=== PATIENT | female | born 1985 | race Caucasian/White ===

== ENCOUNTER → 2023-01-23 | Outpatient (CLI) | payer OTHER, SELFPAY ==
--- NOTE | 2023-01-23 08:00 | RAD_ITS ---
CLINICAL HISTORY: Female, 38 years old. Chronic left shoulder pain. PROCEDURE: ARTHROGRAM - LEFT SHOULDER ASPIRATION. CONSENT: The procedure as well as the benefits and possible complications including infection and bleeding were explained to the patient. Informed consent was obtained. FLUOROSCOPY TIME (if supplied): (50 seconds) minutes/seconds . 8.42 mGy Injection Information: 5 cc of ISOVUE-300 Number of images obtained: 1 TECHNIQUE: (All elements of maximal sterile barrier technique followed, including US elements as applicable) The patient was in the supine position. The overlying skin was prepped and draped in usual sterile fashion. Following local anesthetic application, a 22-gauge spinal needle was placed into the shoulder joint. 5 cc of ISOVUE-300 was injected for confirmation. Following this, aspiration was performed. Approximately 2 cc of blood-tinged fluid was aspirated. The patient tolerated the procedure well. Incidental note is made of a calcific tendinitis. RAD/Inj/Asp Ihsan Jt Should/Hip/Knee IMPRESSION: Successful left shoulder arthrogram and aspiration. Calcific tendinitis. Electronically Signed: Onur Atkins MD at 9:24 EST ,
[2023-01-23] MEDS: Lidocaine 2% (5ml sdv) 5 ML VIAL.MPF INFILT (08:25)
== END | disposition home or self-care (01) ==
PROVIDERS: PCP Nurse Practitioner Family; Referring Provider Specialist; Visit Provider Specialist
DX: M25.512 Pain in left shoulder (principal)
CPT/HCPCS: 20610; 77002; 87070; 87075; 87205

== ENCOUNTER 2023-03-26 13:28 | Observation (INO) | payer OTHER, SELFPAY ==
[2023-03-26] VITALS (7 sets, daily range): BP systolic 111–144; BP diastolic 75–97; PULSE 69–81; RESP 16–18; TEMP 36.6–37.3; O2SAT 99–100; BMI 23.0
[2023-03-26] MEDS: 0.9% Normal Saline 1,000 ML 50 ML IV (13:58)
[2023-03-26] MEDS: Ondansetron 4 MG/2 ML Vial IV (13:58)
[2023-03-26] MEDS: Morphine 2 MG/ML Syringe IV (13:58)
[2023-03-26] MEDS: 0.9% Saline Lock 10 ML Syringe IV (13:59)
--- NOTE | 2023-03-26 16:38 | HP.PCM_ITS ---
HPI - General General Date of Admission: 03/26/23 Date of Service: 03/26/23 Chief Complaint: Distal right ureteral calculi HPI Narrative ALEKSANDRA MARTINEZ, is a 38 F who presents severe pain on the right side she has a stone in the distal right ureter and have not been able to pass it she was in severe pain intractable pain and outside emergency room they called me accepted the patient as a transfer patient was seen in the preoperative area and recommended that we place a stent to alleviate the pain and an obstruction with how much pain she is having very concerned she may have an infection. She was wondering if we can get the stone out today I told her given the situation I recommend we just place a stent and then bring her back for another time to laser the stone out at a separate setting once we know there is no more infection. FORMERLY [facility], [facility]–1983 Medical History Depression Kidney stones Home Medications ciprofloxacin HCl 500 mg tablet (Cipro) 500 mg PO BID #10 tabs 03/26/23 [Rx Last Taken Unknown] oxycodone-acetaminophen 5 mg-325 mg tablet (Endocet) 1 tab PO Q6H PRN pain 7 da ys #20 tabs 03/26/23 [Rx Last Taken Unknown] Allergy/AdvReac Type Severity Reaction Status Date / Time No Known Allergies Allergy Verified 03/26/23 13:58 Surgical History no surgical history Social History Smoking Status: Never smoker Vital Signs Vital Signs Vital Signs: 03/26/23 13:11 03/26/23 13:53 Temperature 97.8 F Temperature Source Oral Pulse Rate 77 Respiratory Rate 18 Respiratory Effort Normal Non-Labored Respiratory Depth Normal Respiratory Pattern Normal Blood Pressure 144/97 H Blood Pressure Mean 112 Blood Pressure Source Monitor Blood Pressure Position Semi-Fowlers Blood Pressure Location Left Forearm Pulse Ox 99 Oxygen Delivery Method Room Air Room Air Weight Weight: 62.823 kg Body Mass Index (BMI) 23.0 Physical Exam Const alert and oriented x3 General Appearance: cooperative HEENT normocephalic, head/scalp atraumatic, EAC's normal and TM's normal bilaterally Eyes PERRL and EOMs intact bilaterally Pupil: sluggish Neck no lymphadenopathy, supple and no JVD General: trachea midline Lymph Lymphatic: no lymphadenopathy noted, lymphedema and lymphadenopathy Resp normal respiratory effort, normal air movement and clear to auscultation bilaterally Cardio regular rate, regular rhythm and peripheral pulses 2+ throughout GI soft to palpation, non-tender and non-distended Extremity normal capillary refill and no clubbing, cyanosis or edema General Extremity: no tenderness to palpation of joints or extremities Skin no rashes or lesions noted General Skin Exam: turgor normal Lesions: no lesions Rashes: no rashes Neuro CN's II-XII intact bilaterally Speech: speech normal Motor Exam: strength 5/5 throughout; Negative for general weakness Psych thought process normal, cooperative and affect normal Appearance: appropriate Results Medical Records Data Attestation: I reviewed the patient's medical records Assessment & Plan Assessment/Plan (1) Kidney stones: PLAN: Plan for cystoscopy and right stent placement.
--- NOTE | 2023-03-26 16:39 | DCINST_ITS ---
Discharge Instructions Diet Discharge Diet: No restrictions, Light diet - advance as tolerated and Soft diet Activity Discharge Activity: Return to Normal Activity Follow Up Care Please Follow Up With: Alexsander Mabry MD When: call office [phone] for instructions Test Results: Test results from this visit will be discussed in further detail at your follow- up appointment, if applicable. Discharge Plan Admission Admit Date/Time: 03/26/23 13:28 Primary Reason for Your Visit: right kidney stone Attending Provider: Alexsander Mabry Primary Care Provider: Brandan Chow Instructions Patient Instructions: Having a Ureteral Stent Discharge Orders/Prescriptions Prescriptions: New oxycodone-acetaminophen [Endocet] 5-325 mg tablet 1 tab PO Q6H PRN (Reason: pain) 7 Days Qty: 20 0RF ciprofloxacin HCl [Cipro] 500 mg tablet 500 mg PO BID Qty: 10 0RF Referrals / Follow Up: Alexsander Mabry MD [Med Staff - Active Staff] - Brandan Chow DO [Primary Care Provider] - Disposition Discharge Orders: Discharge Patient (Routine); Ordered 03/26/23 Ordered By: Dr. Alexsander Mabry
[2023-03-26] MEDS: Cefazolin 2 GM in 0.9% Normal Saline 100 ML IV (16:40)
--- NOTE | 2023-03-26 16:40 | PCM.OPRPT ---
Report of Operation Date of Procedure: 03/26/23 Pre-Operative Diagnosis: Obstructing right distal ureteral calculi Post-Operative Diagnosis: Same Surgery/Procedure Performed:: Cystoscopy right retrograde pyelogram interpretation fluoroscopic images and right stent placement Description of Surgical Findings:: Patient was taken back to the operating room at a smooth induction of general anesthesia she was placed in dorsolithotomy position. The urethra and vaginal area were prepped and draped in usual sterile fashion went into the bladder with a 21 Occitan rigid cystourethroscope she had a minor cystocele inside the bladder identified the trigone the left and right UO orifice the distal right ureter was fairly inflamed and swollen. I then cannulated the right ureteral orifice with a 0.038 Glidewire and a Pollick catheter and immediately got E flux of purulent urine coming from the right side. So at this point decided just to place a stent to be safe so put Pollick catheter performed a retrograde pyelogram there was a ureter that was somewhat twisted and hydronephrotic and hydronephrosis in the right side I then coiled the wire up in the right kidney and over the wire I placed a 6 Occitan by 26 cm stent once in good position pulled the wire and the stent coiled in the kidney bladder good position I then drained the bladder patient anesthetic was reversed and she is taken back to PACU in good condition be discharged home today and follow-up instructions will be given to call my office for instructions. Surgeon: Alexsander Mabry Type of Anesthesia: MAC Drains: stent right. Estimated Blood Loss (mL): 0 Admit VTE Documentation VTE Present on Admission: No VTE Mechan Device Prophylaxis: SCD's VTE Pharm Prophylaxis ordered?: No
== END 2023-03-26 19:43 | disposition home or self-care (01) ==
PROVIDERS: Admitting Provider Urology; PCP Family Medicine; Referring Provider Urology; Visit Provider Urology
PROC: (CPT 52332; principal; 2023-03-26 16:50)
DX: N13.2 Hydronephrosis with renal and ureteral calculous obstruction (principal)
CPT/HCPCS: 52332; 00910; 76000; 96374; 96375; 99221; J7030; A4216; C1769; C2617; G0378; G0379; J2405